=== PATIENT | male | born 1955 | race Caucasian/White ===

== ENCOUNTER 2019-10-07 10:23 | Outpatient (CLI) | payer MEDICARE, SELFPAY ==
--- NOTE | ~2019-10-07 | CT_ITS ---
EXAMINATION: CT lung screening EXAM DATE: 10/07/2019 10:47 INDICATION: Tobacco dependence. Personal history of nicotine dependence. TECHNIQUE: Spiral low dose CT of the chest without contrast. Axial, coronal and sagittal images were reviewed. The dose-length product (DLP) for this examination was 77.40 mGy-cm. The exposure was ta ilored according to patient size (auto mA exposure control), and iterative reconstruction (ASIR) was used as additional dose reduction technique. Comparison is made to prior examination from 06/07/2019. FINDINGS: There is right upper lobe calcification, granuloma. Previously seen right upper lobe 9 mm nodule has decreased in thickness slightly, behaving like scar tissue. There are several smaller nonc alcified upper lobe nodules also stable. There is mild emphysema and moderate hyperinflation. Trache obronchial tree is patent. There is no mediastinal, hilar or axillary lymphadenopathy. There are no pleural or pericardial effusions. There is no pneumothorax. Heart normal in size. There is m ild coronary arterial calcification, arterial sclerosis. Upper abdomen is unremarkable. There is th oracic spondylosis without osteoblastic or osteolytic lesions identified. IMPRESSION: Lung-RADS category 2, benign appearance or behavior (<1% chance of malignancy); recommend continued LDCT screening in 1 year. Reviewed, dictated and finalized at location A. OLE SCHEDULER
== END 2019-10-07 10:24 | disposition home or self-care (01) ==
LOC: CHSIMG 10:26
PROVIDERS: PCP Nurse Practitioner Family; Visit Provider Nurse Practitioner Family
DX: Z12.2 Encounter for screening for malignant neoplasm of respiratory organs (principal); Z87.891 Personal history of nicotine dependence; R91.8 Other nonspecific abnormal finding of lung field
CPT/HCPCS: G0297

== ENCOUNTER 2020-06-28 11:06 | Outpatient (NON) | payer MEDICARE, SELFPAY ==
[2020-06-28 11:42] LABS: Alanine Aminotransferase 21 U/L (16-63); Albumin Level 4.3 g/dL (3.4-5.0); Alkaline Phosphatase 59 U/L (46-116); Anion Gap 12 mmol/L (8-16); Aspartate Amino Transferase 28 U/L (15-37); Bilirubin,Total 0.6 mg/dL (0.00-1.00); Blood Urea Nitrogen 11 mg/dL (7-18); Carbon Dioxide 25 mmol/L (21-32); Chloride 102 mmol/L (98-108); Cholesterol 249 mg/dL (0-200); Estimated Glomerular Filt Rate > 60; Glucose 91 mg/dL (70-99); HDL Direct 64 mg/dL (40-60); LDL Cholesterol Calculated 163 mg/dL (<130); Osmolality Calculated 287 mOsm/kg (285-295); Potassium 4.2 mmol/L (3.5-5.1); Sodium 139 mmol/L (136-145); Total Protein 7.5 g/dL (6.4-8.2); Triglycerides 112 mg/dL (0-150)
== END 2020-06-28 11:07 ==
PROVIDERS: Visit Provider Nurse Practitioner Family
DX: E78.5 Hyperlipidemia, unspecified (principal); I10 Essential (primary) hypertension
CPT/HCPCS: 36415; 80053; 80061

== ENCOUNTER 2021-06-26 09:16 | Outpatient (CLI) | payer MEDICARE, SELFPAY ==
--- NOTE | ~2021-06-26 | CT_ITS ---
EXAMINATION: CT lung screening EXAM DATE: 06/26/2021 09:47 INDICATION: Z87.891 - Personal history of nicotine dependence. TECHNIQUE: Spiral low dose CT of the chest without contrast. Axial, coronal and sagittal images were reviewed. The dose-length product (DLP) for this examination was 72.34 mGy-cm. The exposure was ta ilored according to patient size (auto mA exposure control), and iterative reconstruction (ASIR) was used as additional dose reduction technique. Comparison is made to prior examination from 10/07/2019. FINDINGS: Some scattered right upper lobe post infectious residua. There is mild emphysema and hyper inflation. Linear subsegmental basilar atelectasis or scarring unchanged. No new or suspicious opacit ies. Tracheobronchial tree is patent. There is no mediastinal, hilar or axillary lymphadenopathy. There are no pleural or pericardial effusions. There is no pneumothorax. Heart normal in size. There is mild coronary arterial calcification, arterial sclerosis. Upper abdomen is unremarkable. There is thoracic spondylosis without osteoblastic or osteolytic lesions identified. IMPRESSION: Lung-RADS category 2, benign appearance or behavior (<1% chance of malignancy); recommend continued LDCT screening in 1 year. > Reviewed, dictated and finalized at location B.
[2021-06-26 09:38] LABS: Basophils Absolute Auto 0.12 K/mm3 (0.00-0.10); Basophils Percent Auto 1.4 % (0.0-1.0); Eosinophils Absolute Auto 0.25 K/mm3 (0.02-0.50); Eosinophils Percent Auto 2.8 % (1.0-6.0); Hematocrit 49.4 % (37.0-46.0); Hemoglobin 16.1 g/dL (12.4-15.3); Immature Granulocyte Absolute 0.03 K/mm3 (0.00-0.00); Immature Granulocyte Percent A 0.3 % (0.0-0.0); Lymphocytes Absolute Auto 2.49 K/mm3 (1.10-4.50); Lymphocytes Percent Auto 28.1 % (18.0-42.0); Mean Corpuscular HGB Conc 32.6 g/dL (32.0-36.0); Mean Corpuscular Hemoglobin 28.8 pg (27.0-31.0); Mean Corpuscular Volume 88.4 fL (78.0-102.0); Monocytes Absolute Auto 0.59 K/mm3 (0.10-0.90); Monocytes Percent Auto 6.7 % (2.0-11.0); Neutrophils Absolute Auto 5.4 K/mm3 (1.7-7.2); Neutrophils Percent Auto 60.7 % (50.0-70.0); Platelet Count Result 322 K/mm3 (150-420); Red Blood Count 5.59 M/mm3 (4.70-6.10); White Blood Count 8.9 K/mm3 (4.8-10.8)
[2021-06-26 10:08] LABS: Alanine Aminotransferase 19 U/L (16-63); Albumin Level 4.2 g/dL (3.4-5.0); Alkaline Phosphatase 48 U/L (46-116); Anion Gap 9 mmol/L (8-16); Aspartate Amino Transferase 15 U/L (15-37); Bilirubin,Total 0.6 mg/dL (0.00-1.00); Blood Urea Nitrogen 13 mg/dL (7-18); Carbon Dioxide 31 mmol/L (21-32); Chloride 102 mmol/L (98-108); Cholesterol 284 mg/dL (0-200); Estimated Glomerular Filt Rate > 60; Glucose 96 mg/dL (70-99); HDL Direct 66 mg/dL (40-60); LDL Cholesterol Calculated 204 mg/dL (<130); Osmolality Calculated 294 mOsm/kg (285-295); Potassium 4.1 mmol/L (3.5-5.1); Sodium 142 mmol/L (136-145); Total Protein 7.6 g/dL (6.4-8.2); Triglycerides 71 mg/dL (0-150)
== END 2021-06-26 09:17 | disposition home or self-care (01) ==
LOC: CHSLAB 09:21
PROVIDERS: PCP Family Medicine; Visit Provider Family Medicine
DX: Z87.891 Personal history of nicotine dependence (principal); R91.1 Solitary pulmonary nodule; E78.5 Hyperlipidemia, unspecified; K29.70 Gastritis, unspecified, without bleeding
CPT/HCPCS: 36415; 71271; 80053; 80061; 85025

== ENCOUNTER 2023-04-16 09:56 | Outpatient (CLI) | payer MEDICARE, SELFPAY ==
--- NOTE | ~2023-04-16 | CT_ITS ---
EXAMINATION:CT lung screening DATE: 04/16/2023 10:40 INDICATION: Tobacco use. Smoker who quit 3 years ago with 45 pack year history. TECHNIQUE: Computed tomography (CT) of the chest was performed without intravenous contrast. Automate d exposure control and iterative reconstruction technique were employed. The dose-length product (DLP ) was 94.57 mGy-cm. COMPARISON: Chest CT 06/26/2021 FINDINGS: There is a stable 8 mm nodule in right upper lobe. Calcified bilateral lung nodules and chris cified right hilar and mediastinal lymph nodes are consistent with old granulomatous disease. There i s a stable 5 mm nodule in right upper lobe. There is mild emphysema. There is mild atelectasis bilate rally. No pleural effusion. The heart size is normal. There are coronary artery calcifications. No pe ricardial effusion. Calcifications in the spleen are consistent with old granulomatous disease. There is a 9 mm cyst in the liver. There is mild chronic anterior wedging of multiple vertebral bodies. Th ere is moderate cervical spondylosis and mild thoracic spondylosis. IMPRESSION: 1. Lung-RADS category 2: Benign appearance or behavior. Continue annual screening with noncontrast lo w-dose chest CT in 12 months. Reviewed, dictated and finalized at location A. IMPRESSION: 1. Lung-RADS category 2: Benign appearance or behavior. Continue annual screeni ng with noncontrast low-dose chest CT in 12 months.
[2023-04-16 10:21] LABS: Basophils Absolute Auto 0.14 K/mm3 (0.00-0.10); Basophils Percent Auto 1.3 % (0.0-1.0); Eosinophils Absolute Auto 0.26 K/mm3 (0.02-0.50); Eosinophils Percent Auto 2.4 % (1.0-6.0); Hematocrit 47.1 % (37.0-46.0); Hemoglobin 15.4 g/dL (12.4-15.3); Immature Granulocyte Absolute 0.03 K/mm3 (0.00-0.00); Immature Granulocyte Percent A 0.3 % (0.0-0.0); Lymphocytes Absolute Auto 3.25 K/mm3 (1.10-4.50); Lymphocytes Percent Auto 30.2 % (18.0-42.0); Mean Corpuscular HGB Conc 32.7 g/dL (32.0-36.0); Mean Corpuscular Hemoglobin 29.1 pg (27.0-31.0); Monocytes Absolute Auto 0.82 K/mm3 (0.10-0.90); Monocytes Percent Auto 7.6 % (2.0-11.0); Neutrophils Absolute Auto 6.3 K/mm3 (1.7-7.2); Neutrophils Percent Auto 58.2 % (50.0-70.0); Platelet Count Result 296 K/mm3 (150-420); Red Blood Count 5.29 M/mm3 (4.70-6.10); Red Cell Distribution Width 13.4 % (11.6-14.4); White Blood Count 10.8 K/mm3 (4.8-10.8)
[2023-04-16 11:28] LABS: Alanine Aminotransferase 7 U/L (16-63); Alkaline Phosphatase 58 U/L (46-116); Anion Gap 7 mmol/L (8-16); Aspartate Amino Transferase 13 U/L (15-37); Bilirubin,Total 0.8 mg/dL (0.00-1.00); Blood Urea Nitrogen 10 mg/dL (7-18); Calcium 9.1 mg/dL (8.5-10.1); Carbon Dioxide 32 mmol/L (21-32); Chloride 103 mmol/L (98-108); Cholesterol 258 mg/dL (0-200); Estimated Glomerular Filt Rate > 60; Glucose 79 mg/dL (70-99); HDL Direct 57 mg/dL (40-60); LDL Cholesterol Calculated 174 mg/dL (<130); Osmolality Calculated 292 mOsm/kg (285-295); Potassium 3.8 mmol/L (3.5-5.1); Sodium 142 mmol/L (136-145); Triglycerides 134 mg/dL (0-150)
[2023-04-16 11:31] LABS: Thyroid Stimulating Hormone Reflex 5.66 u/IU/mL (0.36-3.74)
[2023-04-21 09:29] LABS: H pylori, Urea Breath Not Detected
== END 2023-04-16 09:57 | disposition home or self-care (01) ==
LOC: CHSIMG 10:01
PROVIDERS: PCP Family Medicine; Visit Provider Family Medicine
DX: I10 Essential (primary) hypertension (principal); E11.9 Type 2 diabetes mellitus without complications; K29.70 Gastritis, unspecified, without bleeding; Z12.2 Encounter for screening for malignant neoplasm of respiratory organs; Z87.891 Personal history of nicotine dependence
CPT/HCPCS: 36415; 71271; 80053; 80061; 83013; 84439; 84443; 85025

== ENCOUNTER 2024-05-25 10:39 | Outpatient (CLI) | payer MEDICARE, SELFPAY ==
[2024-05-25 11:11] LABS: Basophils Absolute Auto 0.16 K/mm3 (0.00-0.10); Basophils Percent Auto 1.4 % (0.0-1.0); Eosinophils Absolute Auto 0.23 K/mm3 (0.02-0.50); Hematocrit 44.5 % (37.0-46.0); Hemoglobin 14.8 g/dL (12.4-15.3); Immature Granulocyte Absolute 0.05 K/mm3 (0.00-0.00); Immature Granulocyte Percent A 0.4 % (0.0-0.0); Lymphocytes Absolute Auto 3.18 K/mm3 (1.10-4.50); Lymphocytes Percent Auto 27.2 % (18.0-42.0); Mean Corpuscular HGB Conc 33.3 g/dL (32-36); Mean Corpuscular Hemoglobin 28.9 pg (27.0-31.0); Mean Corpuscular Volume 86.9 fL (78.0-102.0); Monocytes Percent Auto 7.7 % (2.0-11.0); Neutrophils Absolute Auto 7.16 K/mm3 (1.70-7.20); Neutrophils Percent Auto 61.3 % (50.0-70.0); Platelet Count Result 385 K/mm3 (150-420); Red Blood Count 5.12 M/mm3 (4.70-6.10); Red Cell Distribution Width 13.6 % (11.6-14.4); White Blood Count 11.7 K/mm3 (4.8-10.8)
[2024-05-25 11:42] LABS: Alanine Aminotransferase 21 U/L (16-63); Albumin Level 4.1 g/dL (3.4-5.0); Alkaline Phosphatase 60 U/L (46-116); Anion Gap 5 mmol/L (4-12); Aspartate Amino Transferase 22 U/L (15-37); Bilirubin,Total 0.9 mg/dL (0.00-1.00); Blood Urea Nitrogen 8 mg/dL (7-18); Calcium 9.1 mg/dL (8.5-10.1); Carbon Dioxide 34 mmol/L (21-32); Chloride 95 mmol/L (98-108); Cholesterol 166 mg/dL (0-200); Estimated Glomerular Filt Rate > 60; Glucose 93 mg/dL (70-99); HDL Direct 78 mg/dL (40-60); LDL Cholesterol Calculated 75 mg/dL (<130); Osmolality Calculated 276 mOsm/kg (285-295); Potassium 4.4 mmol/L (3.5-5.1); Sodium 134 mmol/L (136-145); Total Protein 6.9 g/dL (6.4-8.2); Triglycerides 64 mg/dL (0-150)
[2024-05-25 12:46] LABS: Thyroid Stimulating Hormone Reflex 6.96 u/IU/mL (0.36-3.74)
== END 2024-05-25 10:40 | disposition home or self-care (01) ==
PROVIDERS: PCP Family Medicine; Visit Provider Family Medicine
DX: E03.9 Hypothyroidism, unspecified (principal); E78.5 Hyperlipidemia, unspecified; I10 Essential (primary) hypertension
CPT/HCPCS: 36415; 80053; 80061; 84439; 84443; 85025

== ENCOUNTER 2024-07-06 12:15 | Outpatient (CLI) | payer MEDICARE, SELFPAY ==
--- NOTE | ~2024-07-06 | CT_ITS ---
EXAMINATION: CT sinus wo con DATE: 07/06/2024 12:29 INDICATION: Chronic sinusitis, unspecified. TECHNIQUE: Computed tomography (CT) of the paranasal sinuses was performed without intravenous contra st. Iterative reconstruction technique was employed. The dose-length product was 262.80 mGy-cm. COMPARISON: None FINDINGS: There is mild mucosal thickening in the frontal sinuses and bilateral ethmoid sinuses. The sphenoid and maxillary sinuses are clear. The ostiomeatal units are patent. There is rightward deviat ion of the nasal septum. IMPRESSION: 1. Mild mucosal thickening in the paranasal sinuses. 2. Rightward deviation of the nasal septum. Reviewed, dictated and finalized at location A. NESS INTEGRATION ANALYST
== END 2024-07-06 12:16 | disposition home or self-care (01) ==
LOC: CHSIMG 12:17
PROVIDERS: PCP Family Medicine; Visit Provider Family Medicine
DX: J32.9 Chronic sinusitis, unspecified (principal); J34.2 Deviated nasal septum
CPT/HCPCS: 70486

== ENCOUNTER 2024-07-14 07:57 | Day surgery (SDC) | payer MEDICARE, SELFPAY ==
[2024-07-04 09:17] VITALS: BMI 20.4
[2024-07-04 10:07] VITALS: BMI 20.2
[2024-07-14 09:00] VITALS: BP 114/92; PULSE 77; RESP 17; TEMP 36.9; O2SAT 99; BMI 20.4
--- NOTE | 2024-07-14 09:02 | WPDHPUPDATE1 ---
History and Physical Update Update Date/Time: 07/14/24 09:02 Patient presents today with complaints of upper mid abdominal pain. Not specifically related to meals. Occasionally burning in nature. History and Physical has been reviewed, including an updated exam of the patient. There are NO changes in the patient's condition. Risks, benefits, and alternatives have been discussed and questions answered. Patient agrees to proceed with procedure.
[2024-07-14] MEDS: LACTATED RINGERS 1,000 ML 150 ML IV CONT (09:03)
--- NOTE | 2024-07-14 09:43 | P.PNAN_ITS ---
Anes - Initial Pre Proc Eval Procedure: Operation Date: 07/14/24 10:00 Proposed Procedures p Esophagogastroduodenoscopy - Sylvester Montana MD Date/Time: 07/14/24 09:43 Surgeon: Sylvester Montana MD Pre Op Diagnosis: Nausea, Epigastric Pain, GERD with Esophagitis Patient Data Age: 68 Gender: M Height: 1.8 m Weight: 66.5 kg Last Vital Signs Temp 36.9 C 07/14/24 09:00 Pulse 77 07/14/24 09:00 Resp 17 07/14/24 09:00 BP 114/92 H 07/14/24 09:00 Pulse Ox 99 07/14/24 09:00 O2 Del Method Room Air 07/14/24 09:00 Allergies Allergy/AdvReac Type Severity Reaction Status Date / Time No Known Allergies Allergy Verified 07/14/24 08:43 Home Medications Medication Instructions Recorded Confirmed Type azelastine 205.5 mcg (0.15 %) 2 spray intranasal DAILY PRN nasal 04/14/23 07/14/24 Rx nasal spray congestion #30 mL levothyroxine 75 mcg capsule 75 mcg PO DAILY #90 caps 05/25/24 07/14/24 Rx atorvastatin 40 mg tablet 40 mg PO DAILY 07/04/24 07/14/24 History famotidine 40 mg tablet 40 mg PO DAILY 07/04/24 07/14/24 History fluticasone propionate 50 1 spray intranasal DAILY 07/04/24 07/14/24 History mcg/actuation nasal spray,suspension lisinopril 10 1 tablet PO DAILY 07/04/24 07/14/24 History mg-hydrochlorothiazide 12.5 mg tablet loratadine 10 mg tablet 10 mg PO DAILY 07/04/24 07/14/24 History montelukast 10 mg tablet 10 mg PO DAILY 07/04/24 07/14/24 History pantoprazole 40 mg tablet,delayed 40 mg PO DAILY 07/04/24 07/14/24 History release Patient hx anesthesia problems: none Family hx anesthesia problems: none Results Review: All pre-operative results and documents have been reviewed as part of the pre- operative evaluation. [facility] Past Medical History Medical History Epigastric pain Former tobacco use DIANE (generalized anxiety disorder) Gastritis Hyperlipidemia Hypertension Hypothyroidism Migraines Nausea Surgical History Surgical History Hx of colonoscopy (~08/31/07) Family History Family History Father Family history of coronary artery disease Mother Family history of dementia Brother Acute myocardial infarction Social History Social History Smoking packs per day: 1 Smoking cigarettes per day: 20.0 Years smoked: 30 Smoking pack-years: 30.00 Smoking status: Former smoker Tobacco type: cigarettes Smoking end date: 06/24/20 Alcohol intake: current Alcohol use details: 2-3 per month Substance use: current Substance use type: marijuana Other substance usage details: Multiple times per day Living arrangements: with family Occupation/Education: retired Gender identity (if verbalized by the patient): Male Spiritual care concerns: No Anes - Eval Final PreProcedure Day of Procedure 07/14/24 09:43 Patient weight: normal Heart: regular rate and rhythm Lungs: clear to auscultation Airway: Mallampati scale class II Neurological: alert and oriented Last oral intake: >/= 8 hours ASA classification: III Emergent: no Anesthetic plan: proceed Anesthesia type and monitoring: general GIVS Results Review: All pre-operative results and documents have been reviewed as part of the pre- operative evaluation. Informed Consent: The patient's anesthetic plan and its attendant risks and benefits were discussed with the patient/family/POA. Questions were solicited and answers provided to the satisfaction of the patient/family/POA.
[2024-07-14 10:04] VITALS: BP 84/58; PULSE 57; RESP 14; O2SAT 100
[2024-07-14 10:14] VITALS: BP 107/72; PULSE 59; RESP 15; O2SAT 96
[2024-07-14 10:24] VITALS: BP 112/89; PULSE 62; RESP 14; O2SAT 100
--- NOTE | 2024-07-14 12:56 | WPDANESPN ---
Anes - Prog Note Post-Op Date/Time: 07/14/24 12:56 Cardiovascular status: normal Respiratory status: normal Airway patency: baseline Mental status: baseline Post-Op hydration status: normal Vital Signs: Last Vital Signs Temp 36.9 C 07/14/24 09:00 Pulse 62 07/14/24 10:24 Resp 14 07/14/24 10:24 BP 112/89 07/14/24 10:24 Pulse Ox 100 07/14/24 10:24 O2 Del Method Room Air 07/14/24 10:24 Pain Score (VAS): 0 I/O: Intake & Output 07/13/24 07/14/24 07/14/24 23:59 07:59 15:59 Intake Total 300 Balance 300 Post-procedural complaints: none Patient Feedback: Patient satisfied with anesthetic care. Other Findings: Patient vital signs back to baseline. Patient denies nausea and vomiting. Patient's pain under control. Patient OK for discharge.
== END 2024-07-14 10:32 | disposition home or self-care (01) ==
PROVIDERS: PCP Family Medicine; Visit Provider Internal Medicine Gastroenterology
PROC: 0DJ08ZZ Inspection of Upper Intestinal Tract, Via Natural or Artificial Opening Endoscopic (ICD-10-PCS; CPT 43235; principal; 2024-07-14 10:00)
DX: R10.13 Epigastric pain (principal)
CPT/HCPCS: 43239

== ENCOUNTER 2024-10-28 09:03 | Outpatient (CLI) | payer MEDICARE, SELFPAY ==
[2024-10-28 10:00] LABS: Anion Gap 7 mmol/L (4-12); Blood Urea Nitrogen 12 mg/dL (7-18); Calcium 9.7 mg/dL (8.5-10.1); Carbon Dioxide 33 mmol/L (21-32); Chloride 98 mmol/L (98-108); Estimated Glomerular Filt Rate > 60; Glucose 101 mg/dL (70-99); Osmolality Calculated 285 mOsm/kg (285-295); Potassium 4.6 mmol/L (3.5-5.1); Sodium 138 mmol/L (136-145)
== END 2024-10-28 09:04 | disposition home or self-care (01) ==
PROVIDERS: Otolaryngology; PCP Family Medicine; Visit Provider Nurse Anesthetist, Certified Registered
DX: Z01.818 Encounter for other preprocedural examination (principal); I10 Essential (primary) hypertension
CPT/HCPCS: 36415; 80048; 93005

== ENCOUNTER 2024-11-29 09:47 | Outpatient (CLI) | payer MEDICARE, SELFPAY ==
[2024-11-29 10:09] LABS: Basophils Absolute Auto 0.16 K/mm3 (0.00-0.10); Basophils Percent Auto 1.5 % (0.0-1.0); Eosinophils Absolute Auto 0.15 K/mm3 (0.02-0.50); Eosinophils Percent Auto 1.4 % (1.0-6.0); Hematocrit 41.3 % (37.0-46.0); Hemoglobin 13.3 g/dL (12.4-15.3); Immature Granulocyte Absolute 0.07 K/mm3 (0.00-0.00); Immature Granulocyte Percent A 0.6 % (0.0-0.0); Immature Platelet Fraction Pct 0.5 % (1.0-7.0); Lymphocytes Absolute Auto 2.64 K/mm3 (1.10-4.50); Lymphocytes Percent Auto 24.5 % (18.0-42.0); Mean Corpuscular HGB Conc 32.2 g/dL (32-36); Mean Corpuscular Hemoglobin 28.5 pg (27.0-31.0); Mean Corpuscular Volume 88.6 fL (78.0-102.0); Monocytes Absolute Auto 0.79 K/mm3 (0.10-0.90); Monocytes Percent Auto 7.3 % (2.0-11.0); Neutrophils Absolute Auto 6.97 K/mm3 (1.70-7.20); Neutrophils Percent Auto 64.7 % (50.0-70.0); Platelet Count Result 635 K/mm3 (150-420); Red Blood Count 4.66 M/mm3 (4.70-6.10); Red Cell Distribution Width 13.1 % (11.6-14.4); White Blood Count 10.8 K/mm3 (4.8-10.8)
--- OUTSIDE RECORDS SUMMARY | 2024-11-29 10:41 | XMS_ITS | Clinical Summary ---
Author Organization [facility] Address [address] [place] [address] Care Team Providers Care Press Technician Name Role Phone Ailyn Good ROBISON Primary Care Provider [phone] Allergies No known active allergies Medications levothyroxine (SYNTHROID) 50 MCG tablet Take 1.5 tablets (75 mcg total) by mouth every morning. Active atorvastatin (LIPITOR) 40 MG tablet Take 1 tablet (40 mg total) by mouth nightly at bedtime. Active azelastine (ASTELIN) 0.1 % nasal spray 1 spray by Nasal route 2 (two) times daily. Use in each nostril as directed Active montelukast (SINGULAIR) 10 MG tablet Take 1 tablet (10 mg total) by mouth nightly at bedtime. Active pantoprazole EC (PROTONIX) 40 MG tablet Take 1 tablet (40 mg total) by mouth daily. Active famotidine (PEPCID) 40 MG tablet Take by mouth 2 (two) times daily. Active fluticasone propionate (FLONASE) 50 MCG/ACT nasal spray Active lisinopril-hyd roCHLOROthiazi de (ZESTORETIC) 10-12.5 MG tablet Take 1 tablet by mouth daily. Active loratadine (CLARITIN) 10 MG tablet Take 1 tablet (10 mg total) by mouth daily. Active lisinopril (PRINIVIL) 10 MG tablet Take 1 tablet (10 mg total) by mouth daily. 025 Discontinued ondansetron (ZOFRAN) 4 MG tablet Take 1 tablet (4 mg total) by mouth every 8 (eight) hours as needed for Nausea. 15 tablet 5 025 Discontinued amoxicillin-cl avulanate (AUGMENTIN) 875-125 MG tablet Take 1 tablet (875 mg total) by mouth 2 (two) times a day for 5 days. 10 tablet 5 025 Discontinued amoxicillin-cl avulanate (AUGMENTIN) 875-125 MG tablet Take 1 tablet (875 mg total) by mouth 2 (two) times a day for 5 days. 10 tablet 5 025 ondansetron (ZOFRAN) 4 MG tabletIndicati ons:Colitis Take 1 tablet (4 mg total) by mouth every 8 (eight) hours as needed for Nausea. 15 tablet 5 025 Active Problems Problem Noted Date Diagnosed Date Colitis 11/13/2024 Encounters Date Type Department Care Team Description 11/21/2024 Hospital Follow-up Call [facility] [place] [address] Sonam Doran LPN Follow Up Call ([place] 11/13-11/18/24) 11/13/2024 8:26 PM CDT - 11/18/2024 11:58 AM CDT Hospital Encounter [facility] Med/Surg [address] [place] [address] Miguel Mckay DO Elayyan, Ibrahim B, MD Simpson, Stephanie L, DO Discharge Disposition: Home or Self Care (Routine Discharge) 11/13/2024 2:00 PM CDT - 11/13/2024 7:18 PM CDT Emergency [facility] [place] [address] Roberto Pond DO Banday, Aamir, MD Vomiting (No BM in 5 days) Discharge Disposition: Home or Self Care (Routine Discharge) 11/13/2024 Travel from Last 3 Months Social History Tobacco Use Types Packs/Day Years Used Date Smoking Tobacco: Never Smokeless Tobacco: Never Tobacco Cessation:Counseling Given: Not Answered Alcohol Use Standard Drinks/Week Comments Not Currently 0 (1 standard drink = 0.6 oz pur e alcohol) [facility] Utilities Answer Date Recorded In the past 12 months has th e electric, gas, oil, or water company threatened to shut off services in your home? No 11/13/2024 Humiliation, Afraid, Rape, and Kick questionnair e Answer Date Recorded Within the last year, have y ou been afraid of your partner or ex-partner? No 11/13/2024 Within the last year, have y ou been humiliated or emotionally abused in other ways by your partner or ex-partner? No Within the last year, have y ou been kicked, hit, slapped, or otherwise physically hurt by your partner or ex-partner? No 11/13/2024 Within the last year, have y ou been raped or forced to have any kind of sexual activity by your partner or ex-partner? No 11/13/2024 Overall Financial Resource Strain (CARDIA) Answe r Date Recorded How hard is it for you to pa y for the very basics like food, housing, medical care, and heating? Not hard at all 11/13/2024 Hunger Vital Sign Answer Date Recorded Within the past 12 months, y ou worried that your food would run out before you got the money to buy more. Never true 11/14/19 25 Within the past 12 months, t he food you bought just didn't last and you didn't have money to get more. Never true 11/13/2024 PRAPARE - Transportation Answer Date Re corded In the past 12 months, has l ack of transportation kept you from medical appointments or from getting medications? No 10/29 In the past 12 months, has l ack of transportation kept you from meetings, work, or from getting things needed for daily living? No 11/13/2024 Housing Stability Vital Sign Answer Jeff e Recorded In the last 12 months, was t here a time when you were not able to pay the mortgage or rent on time? No 11/13/2024 In the past 12 months, how m any times have you moved where you were living? 0 11/13/2024 At any time in the past 12 m onths, were you homeless or living in a snf (including now)? No 11/13/2024 Sex and Gender Information Value Date Recorded Sex Assigned at Male 11/13/2024 2:32 PM CDT Legal Sex Male 3:04 PM CDT Gender Identity Not on file Sexual Orientation Not on file Last Filed Vital Signs Vital Sign Reading Time Taken Comments Blood Pressure 121/79 11/18/2024 7:35 AM CDT Pulse 76 11/18/2024 7:35 AM CDT Temperature 36.2 C (97.2 F) 11/18/2024 4:59 AM CDT Respiratory Rate 18 11/18/2024 7:35 AM CDT Oxygen Saturation 95% 11/18/2024 7:35 AM CDT Inhaled Oxygen Concentration - - Weight 67.4 kg (148 lb 9.4 oz) 11/16/2024 12:20 AM CDT Height 180.3 cm (5' 11 ) 11/13/2024 8:35 PM CDT Body Mass Index 20.72 11/13/2024 8:35 PM CDT Plan of Treatment Health Maintenance Due Date Last Done Comments Hepatitis C 1971 DTaP, Tdap and Td Vaccines (1 - Tdap) 1972 Annual Medicare Wellness Visit 2018 COVID-19 Vaccine ( season) 2024 07/08/2022, 03/24/2022, 06/26/2021, Additional history exists Pneumococcal Vaccine: 65+ Years (3 of 3 - PPSV23 or PCV20) 06/28/2025 06/28/2020, 07/09/2017 RSV Immunization or 60+ Years (1 - 1-dose 75+ series) 2028 Colorectal Cancer Screening Colonoscopy (10 Years) 06/10/2033 06/10/2023, 06/10/2023 Zoster Vaccines Completed 03/24/2022, 06/26/2021 Meningococcal B Vaccine Aged Out No l onger eligible based on patient's age to complete this topic Meningococcal Vaccine Aged Out No stanley avelino eligible based on patient's age to complete this topic RSV Immunizations Under 20 Months Aged Out No longer eligible based on patient's age to complete this topic Goals Goal Patient Goal Type Associated Problems Recent Progress Patient-Stated? Author Patient will return to prior living situation and remain independent in ADLs upon discharge from hospital Lifestyle Chioma Davis, acute care nurse Procedure Name Priority Date/Time Associated Diagnosis Comments CBC W/DIFF AUTOMATED Routine 11/18/2024 5:10 AM CDT BASIC METABOLIC PANEL Routine 11/18/2024 5:10 AM CDT MAGNESIUM Routine 11/17/2024 6:12 AM CDT CBC W/DIFF AUTOMATED Routine 11/17/2024 6:12 AM CDT BASIC METABOLIC PANEL Routine 11/17/2024 6:12 AM CDT BASIC METABOLIC PANEL Routine 11/16/2024 6:30 AM CDT CBC W/DIFF AUTOMATED Routine 11/16/2024 6:30 AM CDT PROCALCITONIN (PCT) Routine 11/15/2024 3 :41 AM CDT BASIC METABOLIC PANEL Routine 11/15/2024 3:41 AM CDT CBC W/DIFF AUTOMATED Routine 11/15/2024 3:41 AM CDT CULTURE, BACTERIA, BLOOD Routine 11/14/2024 3:45 AM CDT BASIC METABOLIC PANEL Routine 11/14/2024 3:45 AM CDT THYROID STIM HORMONE TSH Routine 11/14/2024 3:45 AM CDT HEMOGLOBIN, GLYCOSYLATED Routine 11/14/2024 3:45 AM CDT MAGNESIUM Routine 11/14/2024 3:45 AM CDT PROTHROMBIN TIME, VENOUS Routine 11/14/2024 3:45 AM CDT CBC W/DIFF AUTOMATED Routine 11/14/2024 3:45 AM CDT LACTIC ACID W REFLEX (SEPSIS) TIMED 11/13/2024 6:25 PM CDT LACTIC ACID W REFLEX (SEPSIS) TIMED 11/13/2024 4:15 PM CDT HC URINALYSIS AUTO W/MICRO STAT 11/13/2024 3:[address] ABD+PEL W CON STAT 11/13/2024 3:10 PM CDT ECG 12-LEAD Routine 11/13/2024 2:57 PM CDT CORONAVIRUS (COVID-19) ANTIGEN STAT 11/13/2024 2:50 PM CDT INFLUENZA A & B STAT 11/13/2024 2:50 PM CDT XR CHEST PORTABLE STAT 11/13/2024 2:3 5 PM CDT LIPASE STAT 11/13/2024 2:24 PM CDT AMYLASE STAT 11/13/2024 2:24 PM CDT TROPONIN, QUANT STAT 11/13/2024 2:24 PM CDT COMPREHENSIVE METABOLIC PANEL STAT 11/13/2024 2:24 PM CDT CBC W/DIFF AUTOMATED STAT 11/13/2024 2:24 PM CDT LACTIC ACID W REFLEX (SEPSIS) STAT 11/13/2024 2:22 PM CDT COLONOSCOPY 06/10/2023 6:54 AM CDT from Last 3 Months or Most Recently Relevant to Health Maintenance Results * (ABNORMAL) BASIC METABOLIC PANEL (11/18/2024 5:10 AM CDT) Only the most recent of5 resultswithin the time period is included. GLUCOSE 101(H) 70 - 99 MG/DL 11/18/2024 6:06 AM T [facility] BUN 8 7 - 18 MG/DL 11/18/2024 6:06 AM [facility] CREATININE S/P/B 0.90 0.7 - 1.3 MG/DL 11/18/2024 6:06 AM T [facility] SODIUM S/P/B 132(L) 136 - 145 MMOL/L 11/18/2024 6:06 AM T [facility] POTASSIUM S/P/B 4.1 3.5 - 5.1 MMOL/L 11/18/2024 6:06 AM [facility] CHLORIDE S/P/B 100 97 - 115 MMOL/L 11/18/2024 6:06 AM T [facility] CO2 26.1 21 - 32 MMOL/L 11/18/2024 6:06 AM T [facility] CALCIUM S/P/B 8.6 8.5 - 10.1 MG/DL 11/18/2024 6:06 AM [facility] ANION GAP 5.9 2 - 10 MMOL/L 11/18/2024 6:06 AM [facility] BUN CREATININE RATIO 8.9 6 - 26 11/18/2024 6:06 AM [facility] GFR ESTIMATE >90 >90 ML/MIN/1.7 3 M2 11/18/2024 6:06 AM [facility] Comment: NOTE: eGFR is not calculated for patients <18 years of age or gender unknown. This is an estimated GFR calculation using the new CKD EPI creatinine equation without race and so does not require a correction factor for race. This estimated GFR should not be used for calculating drug doses. 11/18/2024 5:10 AM CDT us Lidya Marsh DO LABORATORY Final Res ult [facility] [address] [place] [address], [place] [phone] * (ABNORMAL) CBC W/DIFF AUTOMATED (11/18/2024 5:10 AM CDT) Only the most recent of6 resultswithin the time period is included. WBC 15.71(H) 4.5 - 11.0 x10'3/uL 11/18/2024 5:44 AM CDT [facility] RBC 4.31(L) 4.70 - 6.10 x10'6/uL 11/18/2024 5:44 AM CDT [facility] HGB 12.3(L) 14.0 - 18.0 G/DL 11/18/2024 5:44 AM CDT [facility] HCT 36.4(L) 43.0 - 54.0 % 11/18/2024 5:44 AM CDT [facility] MCV 84.5 80.0 - 94.0 FL 11/18/2024 5:44 AM CDT [facility] MCH 28.5 27.0 - 31.0 PG 11/18/2024 5:44 AM CDT [facility] MCHC 33.8 32.0 - 36.0 G/DL 11/18/2024 5:44 AM CDT [facility] RDW 12.7 11.5 - 14.5 % 11/18/2024 5:44 AM CDT [facility] PLT 352 130 - 400 x10'3/uL 11/18/2024 5:44 AM CDT [facility] MPV 9.7 9.3 - 12.2 FL 11/18/2024 5:44 AM CDT [facility] DIFFERENTIAL TYPE MANUAL DIFFERENTIAL 11/18/2024 6:35 AM CDT [facility] SEG NEUTROPHILS 72 % 6:35 AM CDT [facility] LYMPHOCYTES 14 % 11/18/2024 6:35 AM CDT [facility] MONOCYTES 13 % 11/18/2024 6:35 AM CDT [facility] EOSINOPHILS 1 % 11/18/2024 6:35 AM CDT [facility] ABS. NEUTROPHILS 11.31(H) 1.80 - 7.70 x10'3/uL 11/18/2024 6:35 AM CDT [facility] ABS. LYMPHOCYTES 2.20 1.00 - 4.80 x10'3/uL 11/18/2024 6:35 AM CDT [facility] ABS. MONOCYTES 2.04(H) 0.30 - 0.82 x10'3/uL 11/18/2024 6:35 AM CDT [facility] ABS. EOSINOPHILS 0.16 0.04 - 0.54 x10'3/uL 11/18/2024 6:35 AM CDT [facility] RBC MORPHOLOGY RBC MORPHOLOGY APPEARS NORMAL. SLIDE REVIEWED. 11/18/2024 6:35 AM CDT [facility] PLT EST. ADEQUATE 11/18/2024 6:35 AM CDT [facility] 11/18/2024 5:10 AM CDT us Lidya Marsh DO LABORATORY Final Res ult [facility] [address] [place] [address], [place] [phone] * (ABNORMAL) MAGNESIUM (11/17/2024 6:12 AM CDT) Only the most recent of2 resultswithin the time period is included. MAGNESIUM 2.6(H) 1.8 - 2.4 MG/DL 11/17/2024 8:40 AM CDT [facility] 11/17/2024 6:12 AM CDT Lidya Marsh DO LABORATORY Final Res ult [facility] [address] [place] [address], [place] [phone] * PROCALCITONIN (PCT) (11/15/2024 3:41 AM CDT) Procalcitonin <0.05 0.00 - 0.49 NG/ML 11/15/2024 9:09 AM CDT [facility] 11/15/2024 3:41 AM CDT Lidya Marsh DO LABORATORY Final Res ult [facility] [address] [place] [address], [place] [phone] * HEMOGLOBIN, GLYCATED (11/14/2024 3:45 AM CDT) HGB A1C 5.0 <5.7 % 11/14/2024 8:00 AM CDT [facility] Comment: ADA GUIDELINES 2010 5.7 TO 6.4% INCREASED RISK OF DIABETES > OR = 6.5% CONSISTENT WITH DIABETES ESTIMATED AVG GLUCOSE 97 mg/dL 11/14/2024 8:00 AM CDT [facility] 11/14/2024 3:45 AM CDT Simba Mo MD LABORATORY Final Resul t Performing Organization Address [facility] Co de Phone Number [facility] [address] [place] [address], * PROTHROMBIN TIME, VENOUS (11/14/2024 3:45 AM CDT) PROTIME 12.2 10.2 - 12.9 SEC 11/14/2024 4:06 AM CDT [facility] INR 1.1 11/14/2024 4:06 AM CDT [facility] Comment: Recommended INR Therapeutic Goals: 2.0-3.0 Routine Therapy 2.5-3.5 Mechanical Prosthetic Valves (High Risk) 11/14/2024 3:45 AM CDT Simba Mo MD LABORATORY Final Resul t Performing Organization Address [facility] Co de Phone Number [facility] [address] [place] [address], * CULTURE, BACTERIA, BLOOD (11/14/2024 3:45 AM CDT) SPEC DESCRIPTION BLOOD 11/14/2024 12:31 AM CDT [facility] SPECIAL REQUESTS NO SPECIAL REQUEST 11/14/2024 12:31 AM CDT [facility] CULTURE RESULT NO GROWTH 5 DAYS 11/19/2024 4:28 AM CDT [facility] BLOOD SPECIMEN OBTAINED FOR BLOOD CULTURE / Unknown 11/14/2024 3:45 AM CDT 11/14/2024 3:54 AM CDT Simba Mo MD MICROBIOLOGY - GENERAL ORDE JOSHLES Final Result [facility] [address] [place] [address], [place] [phone] * (ABNORMAL) THYROID STIM HORMONE, TSH (11/14/2024 3:45 AM CDT) TSH 0.109(L) 0.358 - 3.74 uIU/ML 11/14/2024 4:28 AM CDT [facility] Comment: HIGH DOSES OF BIOTIN MAY INTERFERE WITH THIS TEST RESULT. CORRELATION TO CLINICAL HISTORY AND PRESENTATION RECOMMENDED. 11/14/2024 3:45 AM CDT Simba Mo MD LABORATORY Final Resul t Performing Organization Address [facility] Co de Phone Number [facility] [address] [place] [address], [place] [phone] * LACTIC ACID W REFLEX (SEPSIS) (11/13/2024 6:25 PM CDT) Only the most recent of3 resultswithin the time period is included. LACTIC ACID VENOUS 1.6 0.4 - 2.0 MMOL/L 11/13/2024 6:[address] [facility] 11/13/2024 6:25 PM CDT Roberto Pond DO LABORATORY Final Result [facility] [address] [place] [address], [place] [phone] * (ABNORMAL) URINALYSIS (11/13/2024 3:50 PM CDT) COLOR (U) YELLOW 11/13/2024 4:[address] [facility] TRANSPARENCY CLEAR 11/13/2024 4:[address] [facility] SPECIFIC GRAVITY (U) 1.015 1.000 - 1.025 11/13/2024 4:[address] [facility] U PH 7.0 5.0 - 8.0 11/13/2024 4:[address] [facility] LEUKOCYTES (U) NEGATIVE NEGATIVE 11/13/2024 4:[address] [facility] NITRITES NEGATIVE NEGATIVE 11/13/2024 4:[address] [facility] PROTEIN RANDOM (U) TRACE(A) NEGATIVE 11/13/2024 4:[address] [facility] GLUCOSE (U) NEGATIVE NEGATIVE 11/13/2024 4:[address] [facility] KETONES MG/DL (U) 3+(A) NEGATIVE 11/13/2024 4:[address] [facility] UROBILINOGEN 0.2 <1.0 EU/DL 11/13/2024 4:[address] [facility] BILIRUBIN (U) NEGATIVE NEGATIVE 11/13/2024 4:[address] [facility] BLOOD (U) TRACE(A) NEGATIVE 11/13/2024 4:[address] [facility] WBC/HPF 0-5 0 - 5 /HPF 11/13/2024 4:[address] [facility] RBC/HPF 0-5 0 - 5 /HPF 11/13/2024 4:[address] [facility] EPI/LPF RARE /LPF 11/13/2024 4:[address] [facility] BACTERIA (U) TRACE /HPF 11/13/2024 4:[address] [facility] MUCUS PRESENT 11/13/2024 4:[address] [facility] URINE SPECIMEN OBTAINED BY CLEAN CATCH PROCEDURE / Unknown 11/13/2024 3:50 PM CDT us Roberto Pond DO URINE ORDERABLES Final Resul t [facility] [address] [place] [address], * CT ABD+PEL W IV CON ONLY (11/13/2024 3:10 PM CDT) Anatomical Region Laterality Modality Abdomen Computed Tomogra phy 11/13/2024 3:21 PM CDT Impressions 11/13/2024 3:27 PM CDT IMPRESSION: 1. There is a segmental area of mild inflammation involving the transverse colon and proximal descending colon suggestive of colitis. 2. No evidence of perforation or abscess formation. 3. There is a large stool burden suggestive of constipation. Referred By: Interpreted By: Davy Zambrano DO, 11/13/2024 3:21 PM Narrative 11/13/2024 3:27 PM [address]T [address] [place] [address] EXAMINATION: CT abdomen/pelvis with contrast HISTORY: Abdominal pain. Vomiting. COMPARISON: None. TECHNIQUE: Axial CT images of the abdomen and pelvis after the uneventful intravenous administration of 93 mL of Isovue-370 given through the right antecubital fossa. Sagittal and coronal reformatted image sets. A dose lowering technique was used for this procedure, which may include, but is not limited to, dose reduction technique, automated exposure control, the use of degenerative reconstruction, and ALARA/image gently techniques. FINDINGS: Lower chest: The included lung bases are clear. The heart is normally sized. Upper abdomen: The liver is normal in size and contour. There are several small benign-appearing hepatic cysts. There is no cholelithiasis. No evidence of acute cholecystitis. No biliary ductal dilatation. No acute-appearing pancreatic abnormalities. The spleen is normally sized. There are small calcified splenic granulomas. No adrenal masses. Kidneys: The kidneys enhance symmetrically. No hydronephrosis or nephrolithiasis. No evidence of renal mass or inflammation. There is no urolithiasis. Vascular: There is atherosclerotic calcification of the aorta which remains normal caliber. Bowel/mesentery: No ascites or free intraperitoneal air. There is no bowel obstruction. There is a stool ball within the rectum. There is a large stool burden suggestive of constipation. The appendix is normal caliber. No evidence of acute appendicitis. There is a segmental area of mild inflammation involving the transverse colon and proximal descending colon suggestive of colitis. No evidence of perforation or abscess formation. No herniated bowel loops. No acute appearing gastric abnormalities. Pelvis: There are pelvic phleboliths. No free pelvic fluid. No bladder wall thickening. The prostate gland is mildly enlarged. No evidence of pelvic inflammation. Other findings: None. Osseous: There are multilevel degenerative changes within the spine. No acute osseous abnormalities identified. Procedure Note Davy Zambrano, - 11/13/2024 [facility] [address] [place] [address] EXAMINATION: CT abdomen/pelvis with contrast HISTORY: Abdominal pain. Vomiting. COMPARISON: None. TECHNIQUE: Axial CT images of the abdomen and pelvis after the uneventful intravenousadministration of 93 mL of Isovue-370 given through the right antecubitalfossa. Sagittal and coronal reformatted image sets. A dose lowering technique was used for this procedure, which may include,but is not limited to, dose reduction technique, automated exposurecontrol, the use of degenerative reconstruction, and ALARA/image gentlytechniques. FINDINGS: Lower chest: The included lung bases are clear. The heart is normallysized. Upper abdomen: The liver is normal in size and contour. There are severalsmall benign-appearing hepatic cysts. There is no cholelithiasis. Noevidence of acute cholecystitis. No biliary ductal dilatation. Noacute-appearing pancreatic abnormalities. The spleen is normally sized.There are small calcified splenic granulomas. No adrenal masses. Kidneys: The kidneys enhance symmetrically. No hydronephrosis ornephrolithiasis. No evidence of renal mass or inflammation. There is nourolithiasis. Vascular: There is atherosclerotic calcification of the aorta whichremains normal caliber. Bowel/mesentery: No ascites or free intraperitoneal air. There is nobowel obstruction. There is a stool ball within the rectum. There is alarge stool burden suggestive of constipation. The appendix is normalcaliber. No evidence of acute appendicitis. There is a segmental area ofmild inflammation involving the transverse colon and proximal descendingcolon suggestive of colitis. No evidence of perforation or abscessformation. No herniated bowel loops. No acute appearing gastricabnormalities. Pelvis: There are pelvic phleboliths. No free pelvic fluid. No bladderwall thickening. The prostate gland is mildly enlarged. No evidence ofpelvic inflammation. Other findings: None. Osseous: There are multilevel degenerative changes within the spine. Noacute osseous abnormalities identified. IMPRESSION: 1. There is a segmental area of mild inflammation involving thetransverse colon and proximal descending colon suggestive of colitis. 2. No evidence of perforation or abscess formation. 3. There is a large stool burden suggestive of constipation. Referred By: Interpreted By: Davy Zambrano DO, 11/13/2024 3:21 PM us Roberto Pond DO CT Final Result * ECG 12 lead (11/13/2024 2:57 PM CDT) 11/13/2024 2:57 PM CDT Narrative [facility] - 11/13/2024 5:15 PM [address]T [address] [place] [address] Test Date: 2024-11-13 Pat Name: [facility] Department: 3 Room: EXAM 101 Gender: Male Molder Sweep: : 1955 Requested By: ROBERTO POND Order Number: [id number] Reading MD: Sparkle Gonzalez Measurements Intervals [place] Rate: 84 P: 75 NC: 155 QRS: 83 QRSD: 86 T: 70 QT: 376 QTc: 446 Interpretive Statements SINUS RHYTHM Procedure Note Sparkle Gonzalez MD - 11/13/[address] [place] [address] Test Date: 2024-11-13 Pat Name: [facility] Department: 3 Room: EXAM 101 Gender: Male Molder Sweep: : 1955 Requested By: ROBERTO POND Order Number: [id number] Reading MD: Sparkle Gonzalez Measurements Intervals [place] Rate: 84 P: 75 NC: 155 QRS: 83 QRSD: 86 T: 70 QT: 376 QTc: 446 Interpretive Statements SINUS RHYTHM Roberto Pond DO ECG ORDERABLES Final Result Performing Organization Address City/[facility]/ZIP Co de Phone Number [facility] * CORONAVIRUS (COVID-19) ANTIGEN (11/13/2024 2:50 PM CDT) CORONAVIRUS ANTIGEN IA NEGATIVE NEGATIVE 11/13/2024 3:[address] [facility] Comment: NEGATIVE RESULTS DO NOT RULE OUT SARS-COV-2 INFECTION AND SHOULD NOT BE USED THE SOLE BASIS FOR TREATMENT OR PATIENT MANAGEMENT DECISIONS, INCLUDING INFECTION CONTROL DECISIONS. NEGATIVE RESULTS SHOULD BE CONSIDERED IN THE CONTEXT OF A PATIENT'S RECENT EXPOSURES, HISTORY AND THE PRESENCE OF CLINICAL SIGNS AND SYMPTOMS CONSISTENT WITH COVID 19. THIS TEST HAS BEEN AUTHORIZED BY THE FDA UNDER AN EMERGENCY USE AUTHORIZATION (EUA) FOR USE BY AUTHORIZED LABORATORIES. SPECIMEN TYPE NASAL 11/13/2024 3:[address] [facility] NASAL NASAL STRUCTURE / Unknown 11/13/2024 2:50 PM CDT Roberto Pond DO MICROBIOLOGY - GENERAL ORDER CARINE Final Result Performing Organization Address City/[facility]/ZIP Co de Phone Number [facility] [place] [address], * INFLUENZA A & B (11/13/2024 2:50 PM CDT) SPECIMEN TYPE (INFLUENZA) NASOPHARYNGEAL SWAB 11/13/2024 3:[address] [facility] INFLUENZA A NEGATIVE NEGATIVE 11/13/2024 3:[address] [facility] INFLUENZA B NEGATIVE NEGATIVE 11/13/2024 3:[address] [facility] Comment: A NEGATIVE RESULT DOES NOT EXCLUDE INFLUENZA VIRUS INFECTION. IF INFLUENZA IS CIRCULATING IN YOUR COMMUNITY, A DIAGNOSIS OF INFLUENZA SHOULD BE CONSIDERED BASED ON A PATIENT'S CLINICAL PRESENTATION AND EMPIRIC ANTIVIRAL TREATMENT SHOULD BE CONSIDERED IF INDICATED. NASAL NASOPHARYNGEAL SWAB / Unknown 11/13/2024 2:50 PM CDT us Roberto Pond DO MICROBIOLOGY - GENERAL ORDER CARINE Final Result [facility] [address] [place] [address], * XR CHEST PORTABLE (11/13/2024 2:35 PM CDT) Anatomical Region Laterality Modality Chest Radiographic Laura ging 11/13/2024 2:45 PM CDT Impressions 11/13/2024 2:46 PM CDT IMPRESSION: No acute chest disease identified. Ordered By: ROBERTO POND Interpreted By: Irineo Armenta MD, 11/13/2024 2:45 PM Narrative 11/13/2024 2:46 PM [address]T [address] [place] [address] Examination: XR CHEST PORTABLE Exam time: 11/13/2024 2:26 PM Clinical history: Chest pain and vomiting. Comparison: No comparison. Technique: AP image of the chest. Findings: The cardiomediastinal silhouette appears normal. There is no pulmonary consolidation, pleural effusion or pneumothorax. The pulmonary vasculature appears normal. Procedure Note Irineo Armenta MD - 11/13/[address] [place] [address] Examination: XR CHEST PORTABLE Exam time: 11/13/2024 2:26 PM Clinical history: Chest pain and vomiting. Comparison: No comparison. Technique: AP image of the chest. Findings: The cardiomediastinal silhouette appears normal. There is no pulmonaryconsolidation, pleural effusion or pneumothorax. The pulmonary vasculatureappears normal. IMPRESSION: No acute chest disease identified. Ordered By: ROBERTO POND Interpreted By: Irineo Armenta MD, 11/13/2024 2:45 PM Roberto Pond DO GENERAL IMAGING Final Result * (ABNORMAL) COMPREHENSIVE METABOLIC PANEL (11/13/2024 2:24 PM CDT) SODIUM S/P/B 132(L) 136 - 145 MMOL/L 11/13/2024 2:[address] [facility] POTASSIUM S/P/B 3.3(L) 3.5 - 5.1 MMOL/L 11/13/2024 2:[address] [facility] CHLORIDE S/P/B 95(L) 98 - 107 MMOL/L 11/13/2024 2:[address] [facility] CO2 22.1 21.0 - 32.0 MMOL/L 11/13/2024 2:[address] [facility] GLUCOSE 148(H) 70 - 99 MG/DL 11/13/2024 2:[address] [facility] Comment: FASTING GLUCOSE 100 TO 125 MG/DL IS CONSISTENT WITH IMPAIRED FASTING GLUCOSE. FASTING GLUCOSE >125 MG/DL IS CONSISTENT WITH DIABETES. RANDOM GLUCOSE >200 MG/DL WITH HYPERGLYCEMIC SYMPTOMS IS CONSISTENT WITH DIABETES. PER ADA GUIDELINES BUN 18 6 - 24 MG/DL 11/13/2024 2:[address] [facility] CREATININE S/P/B 1.42(H) 0.70 - 1.30 MG/DL 11/13/2024 2:[address] [facility] CALCIUM S/P/B 9.8 8.4 - 10.5 MG/DL 11/13/2024 2:[address] [facility] BILIRUBIN TOTAL S/P/B 1.3(H) 0.2 - 1.0 MG/DL 11/13/2024 2:[address] [facility] Comment: THIS ASSAY IS NOT RECOMMENDED FOR PATIENTS UNDERGOING TREATMENT WITH ELTROMBOPAG DUE TO THE POTENTIAL FOR FALSELY ELEVATED RESULTS. ALKALINE PHOSPHATASE S/P/B 64 45 - 115 U/L 11/13/2024 2:[address] [facility] AST 16 15 - 37 U/L 11/13/2024 2:[address] [facility] ALT 21 16 - 63 U/L 11/13/2024 2:[address] [facility] TOTAL PROTEIN S/P/B 7.5 6.4 - 8.2 G/DL 11/13/2024 2:[address] [facility] ALBUMIN S/P/B 4.3 3.4 - 5.0 G/DL 11/13/2024 2:[address] [facility] ANION GAP 14.9 5.0 - 15.0 MMOL/L 11/13/2024 2:[address] [facility] OSMOLALITY (CALC) 279 MOSM/KG 025 2:[address] [facility] Comment:REFERENCE RANGE NOT ESTABLISHED GFR ESTIMATE 53(L) >89 ML/MIN/1. 73 M2 11/13/2024 2:[address] [facility] GFR NOTES GFR REFERENCE S: 11/13/2024 2:[address] [facility] Comment: THE ESTIMATED GFR IS CALCULATED USING THE 2020 CKD-EPI EQUATION. THE FOLLOWING CATEGORIES FOR GRADING RENAL FUNCTION ARE RECOMMENDED BY THE [employer]NATIONAL SOCIETY OF NEPHROLOGY (KDIGO 2012 CLINICAL PRACTICE GUIDELINE). G1,NORMAL OR HIGH: >89 ml/min/1.73 m2 G2,MILDLY DECREASED: 60-89 ml/min/1.73 m2 G3A,MILDLY TO MODERATELY DECREASED: 45-59 ml/min/1.73 m2 G3B,MODERATELY TO SEVERELY DECREASED: 30-44 ml/min/1.73 m2 G4,SEVERELY DECREASED: 15-29 ml/min/1.73 m2 G5,KIDNEY FAILURE: <15 ml/min/1.73 m2 11/13/2024 2:24 PM CDT us Roberto Pond DO LABORATORY Final Result [facility] [address] [place] [address], * TROPONIN, QUANT (11/13/2024 2:24 PM CDT) TROPONIN I HIGH SENSITIVITY 11 0 - 76 ng/L 11/13/2024 2:[address] [facility] 11/13/2024 2:24 PM CDT us Roberto Pond DO LABORATORY Final Result Performing Organization Address City/[facility]/ZIP Co de Phone Number [facility] [address] [place] [id number], * AMYLASE (11/13/2024 2:24 PM CDT) Pathologist [facility] AMYLASE S/P/B 57 25 - 115 UNITS/L 11/13/2024 2:[address] [facility] 11/13/2024 2:24 PM CDT us Roberto Pond DO LABORATORY Final Result Performing Organization Address [facility] Co de Phone Number [address] [address], * LIPASE (11/13/2024 2:24 PM CDT) Pathologist [facility] LIPASE 35 16 - 77 UNITS/L 11/13/2024 3:[address] [facility] 11/13/2024 2:24 PM CDT us Roberto Pond DO LABORATORY Final Result Performing Organization Address [facility] Co de Phone Number [facility] [address] [place] [id number], * Colonoscopy (06/10/2023 6:54 AM CDT) us Teddy Leblanc MD GI PROCEDURE ORDERABLES Final Result from Last 3 Months or Most Recently Relevant to Health Maintenance Insurance [facility] Advance Directives * Full Code (Latest Code Status on File) Date Activated Date Inactivated Comments 11/13/2024 10:16 PM 11/18/2024 1:59 PM Care Teams Press Technician Relationship Specialty Start Date End Date Good Robertson DO [address] [place] [address] PCP - General FAMILY PRACTICE 06/08/23
[2024-11-29 10:56] LABS: Alanine Aminotransferase 26 U/L (16-63); Albumin Level 3.6 g/dL (3.4-5.0); Alkaline Phosphatase 74 U/L (46-116); Anion Gap 6 mmol/L (4-12); Aspartate Amino Transferase 11 U/L (15-37); Bilirubin,Total 0.6 mg/dL (0.00-1.00); Blood Urea Nitrogen 15 mg/dL (7-18); Calcium 9.4 mg/dL (8.5-10.1); Carbon Dioxide 32 mmol/L (21-32); Chloride 98 mmol/L (98-108); Estimated Glomerular Filt Rate > 60; Glucose 95 mg/dL (70-99); Magnesium 2.3 mg/dL (1.8-2.4); Osmolality Calculated 282 mOsm/kg (285-295); Potassium 4.6 mmol/L (3.5-5.1); Sodium 136 mmol/L (136-145); Total Protein 6.6 g/dL (6.4-8.2)
== END 2024-11-29 09:48 | disposition home or self-care (01) ==
LOC: CHSLAB 09:50
PROVIDERS: PCP Family Medicine; Visit Provider Family Medicine
DX: K21.9 Gastro-esophageal reflux disease without esophagitis (principal); I10 Essential (primary) hypertension; F41.1 Generalized anxiety disorder
CPT/HCPCS: 36415; 80053; 83735; 85025; 85055